=== PATIENT | female | born 1970 | race African-American/Black ===

== ENCOUNTER 2019-06-15 07:00 | Inpatient (IN) | payer OTHER ==
[~2019-06-15] VITALS: Ht 162.6 cm; Wt 62.6 kg
[2019-06-15] MEDS ORDERED: SODIUM CHLORIDE 0.9% 250 ML IV ONE (07:07)
[2019-06-15] MEDS ORDERED: VASOPRESSIN 20 UNIT/ML 1ML ONE (07:07)
[2019-06-15] MEDS ORDERED: METHYLENE BLUE 50 MG/10 ML AMP IV ONE (07:08)
[2019-06-15 07:46] LABS: CLARITY URINE CLEAR (CLEAR); COLOR URINE YELLOW (YELLOW); KETONES URINE NEGATIVE (NEGATIVE); LEUKOCYTE ESTERASE URINE TRACE (NEGATIVE); NITRITE URINE NEGATIVE (NEGATIVE); OCCULT BLOOD URINE 2+ (NEGATIVE); PROTEIN URINE NEGATIVE (NEGATIVE); SPECIFIC GRAVITY URINE 1.018 (1.005-1.030); UROBILINOGEN URINE 0.2 E.U./dL (0.2-1.0)
[2019-06-15 07:51] LABS: UCG SCREEN NEGATIVE
[2019-06-15] MEDS ORDERED: SODIUM CHLORIDE 0.9% 10ML VIAL ONE (13:45)
[2019-06-15] MEDS ORDERED: ROCURONIUM BROMIDE 10MG/ML VIAL 5ML IV ONE (13:45)
[2019-06-15] MEDS ORDERED: LIDOCAINE HCL/PF 1% 10 MG/ML 5ML VIAL ONE (13:45)
[2019-06-15] MEDS ORDERED: MIDAZOLAM HCL 2 MG/2 ML VIAL ONE (13:45)
[2019-06-15] MEDS ORDERED: GLYCOPYRROLATE 0.2 MG/ML 2ML VIAL ONE (13:45)
[2019-06-15] MEDS ORDERED: CEFAZOLIN SODIUM 1000MG/VIAL ONE (13:45)
[2019-06-15] MEDS ORDERED: PROPOFOL 200MG/20ML VIAL IV ONE (13:45)
[2019-06-15] MEDS ORDERED: FENTANYL CITRATE/PF 50MCG/ML 2ML VIAL ONE ×2 (13:45→14:39)
[2019-06-15] MEDS ORDERED: NEOSTIGMINE METHYLSULFATE 1MG/ML 10 ML VIAL ONE (13:45)
[2019-06-15] MEDS ORDERED: METOCLOPRAMIDE HCL 10MG/2ML VIAL ONE (13:46)
[2019-06-15] MEDS ORDERED: DEXAMETHASONE 4MG/ML 1ML VIAL ONE (13:46)
[2019-06-15] MEDS ORDERED: ONDANSETRON HCL 4MG/2ML INJ ONE (13:46)
[2019-06-15] MEDS ORDERED: SUCCINYLCHOLINE CHLORIDE 200MG/10ML IV ONE (13:46)
[2019-06-15] MEDS ORDERED: SODIUM CHLORIDE 0.9% 1,000 ML IV ONE (15:05)
[2019-06-15] MEDS ORDERED: MORPHINE SULFATE 2 MG/ML CPJ (NOT FOR IM USE) IV PRN (15:15)
[2019-06-15] MEDS ORDERED: ONDANSETRON HCL 4MG/2ML INJ IV PRN (15:15)
[2019-06-15] MEDS ORDERED: MEPERIDINE HCL/PF 25MG/ML CPJ IV PRN ×2 (15:15)
[2019-06-15] MEDS: HYDROMORPHONE HCL/PF 2MG/ML CPJ IV PRN ×5 (15:18→15:56)
[2019-06-15] MEDS ORDERED: NALOXONE INJ IV PRN (16:00)
[2019-06-15] MEDS ORDERED: DIPHENHYDRAMINE INJ IV PRN (16:00)
[2019-06-15] MEDS ORDERED: HYDROMORPHONE PCA 10MG/50ML IV PRN (16:00)
[2019-06-15] MEDS ORDERED: ONDANSETRON INJ IV PRN (16:00)
[2019-06-15] MEDS ORDERED: HYDROCODONE/ACETAMINOPHEN 5/325MG TABLET PO PRN ×2 (16:21→16:30)
[2019-06-15 17:51] VITALS: BP 111/59
[2019-06-15] MEDS: SIMETHICONE 80MG TABLET CHEW PO PRN (18:25)
[2019-06-15 20:00] VITALS: BP 123/67
[2019-06-15] MEDS: DEXT 5%/LACTATED RINGERS 1,000 ML IV SCH (23:05)
[2019-06-16] VITALS: BP 95/59
[2019-06-16 04:00] VITALS: BP 103/59
[2019-06-16] MEDS: SIMETHICONE 80MG TABLET CHEW PO PRN ×2 (06:50→13:31)
[2019-06-16] MEDS: DEXT 5%/LACTATED RINGERS 1,000 ML IV SCH ×3 (06:53→16:02)
[2019-06-16 07:13] LABS: HEMATOCRIT 32.6 % (36.0-48.0); HEMOGLOBIN 10.7 g/dL (12.0-16.0); MEAN CORPUSCULAR HEMOGLOBIN 28.7 pg (28.0-32.0); MEAN CORPUSCULAR VOLUME 87.4 fL (81.0-99.0); PLATELET 371 x1000/uL (130-400); RED BLOOD CELL COUNT 3.73 mill/uL (4.2-5.4); RED CELL DISTRIBUTION WIDTH 13.3 % (11.6-14.6)
[2019-06-16 12:00] VITALS: BP 104/50
[2019-06-16] MEDS ORDERED: ACETAMINOPHEN 500MG TABLET PO PRN ×2 (14:00)
[2019-06-16 16:00] VITALS: BP 96/59
[2019-06-16 20:00] VITALS: BP 108/58
[2019-06-17] VITALS: BP 112/64
[2019-06-17 04:00] VITALS: BP 111/54
[2019-06-17 08:00] VITALS: BP 126/75
[2019-06-17] MEDS: SIMETHICONE 80MG TABLET CHEW PO PRN (09:30)
[2019-06-17 10:57] VITALS: BP 126/75
[2019-06-17 12:00] VITALS: BP 126/69
[2019-06-17 16:00] VITALS: BP 115/96
== END 2019-06-17 16:05 | disposition home or self-care (01) | DRG 743 ==
LOC: OR 07:00 → 6EST 18:01
PROVIDERS: ADMIT Obstetrics & Gynecology Obstetrics; ATTEND Obstetrics & Gynecology Obstetrics
PROC: 0UT90ZZ Resection of Uterus, Open Approach (ICD-10-PCS; principal; 2019-06-15)
PROC: 0UT70ZZ Resection of Bilateral Fallopian Tubes, Open Approach (ICD-10-PCS; 2019-06-15)
DX: D25.9 Leiomyoma of uterus, unspecified (principal); Z83.3 Family history of diabetes mellitus; Z82.49 Family history of ischemic heart disease and other diseases of the circulatory system; Z80.9 Family history of malignant neoplasm, unspecified
CPT/HCPCS: 36415; 81003; 81025; 85027; 88307; C1893; G0378; J0330; J0690; J1100; J1170; J2175; J2250; J2270; J2405; J2704; J2710; J2765; J3010; J3490; J7050; J7121; Q9968